=== PATIENT | male | born 1990 | race Two or more races ===

== ENCOUNTER 2019-11-02 14:36 | Emergency (ER) | payer SELFPAY ==
[~2019-11-02] VITALS: Ht 172.7 cm; Wt 62.6 kg
[2019-11-02 14:54] VITALS: BP 130/73
--- NOTE | 2019-11-02 15:45 | NUR ---
Patient discharged to home in stable condition. Written and verbal after care instructions given. Patient verbalizes understanding of instruction.
== END 2019-11-02 15:44 | disposition home or self-care (01) ==
LOC: ER 14:38
DX: K06.8 Other specified disorders of gingiva and edentulous alveolar ridge (principal)

== ENCOUNTER 2022-08-04 18:12 | Emergency (ER) | payer MEDICAID ==
[~2022-08-04] VITALS: Ht 152.4 cm; Wt 61.2 kg
--- NOTE | 2022-08-04 19:09 | NUR ---
BLOOD SAMPLES OBTAINED
--- NOTE | 2022-08-04 20:14 | NUR ---
"Been having pain on chest x3days NOT going away" awake and alert breathing unlabored placed on monitor tech and v/s wnl.
--- NOTE | 2022-08-04 21:02 | NUR ---
Patient discharged to home in stable condition. Written and verbal after care instructions given. Patient verbalizes understanding of instruction.
--- NOTE | 2022-08-04 21:02 | NUR ---
IV removed. Catheter intact and site benign. Pressure and 4x4 applied to site. No bleeding noted.
[2022-08-04 21:04] VITALS: BP 132/78
== END 2022-08-04 21:04 | disposition home or self-care (01) ==
LOC: ER 18:25
DX: R07.89 Other chest pain (principal)
CPT/HCPCS: 71045-TC